=== PATIENT | male | born 1980 | race Caucasian/White ===

== ENCOUNTER 2020-04-26 19:15 | Emergency (ER) | payer MEDICAID ==
[~2020-04-26] VITALS: Ht 172.7 cm; Wt 99.8 kg
[2020-04-26 19:22] VITALS: BP 157/108
--- NOTE | 2020-04-26 19:23 | NUR ---
PT TAKEN TO BED 7
--- NOTE | 2020-04-26 19:25 | NUR ---
39 Y/O MALE PRESENTED TO ED C/O ABSCESS BELOW LEFT ELBOW. PT STATES HE HAD IT LOOKED AT LAST WEEK AND WANTED TO GET IT RECHECKED. PT SECONDARY C/O URINARY RETENTION AND BURNING ISSUES. PT STATES HE HAD UNPROTECTED SEX AND NOW WANTS TO GET TESTED FOR STD. PT RESTING IN BED AT LOWEST POSITION , HOB ELEVATED , SIDE RAIL X1. PMH: ASTHMA RX: DENIES NKA
--- NOTE | 2020-04-26 19:30 | NUR ---
PT AMBULATED TO RESTROOM W/ STEADY GAIT.
[2020-04-26] MEDS ORDERED: AZITHROMYCIN 250 MG TAB PO ONE (19:55)
[2020-04-26] MEDS ORDERED: cefTRIAXone 1,000 MG in LIDOCAINE MPF 1% 2.1 ML IM ONE (19:55)
[2020-04-26] MEDS ORDERED: cefTRIAXone 1,000 MG VIAL ONE (20:03)
--- NOTE | 2020-04-26 20:03 | NUR ---
CALLED HOUSE SUP FOR AZITHROMYCIN MEDICATION FOR PT.
[2020-04-26] MEDS ORDERED: LIDOCAINE MPF 1% 5 ML ONE (20:04)
[2020-04-26 20:32] VITALS: BP 157/108
--- NOTE | 2020-04-26 20:34 | NUR ---
Patient discharged with v/s stable. Written and verbal after care instructions given and explained. Patient verbalized understanding. Ambulatory with steady gait. All questions addressed prior to discharge. Advised to follow up with PMD.
[2020-04-28 06:08] LABS: CHLAMYDIA TRACHOMATIS AMP DNA Negative (Negative)
== END 2020-04-26 20:34 | disposition home or self-care (01) ==
LOC: MED 19:15
DX: A64 Unspecified sexually transmitted disease (principal); F17.210 Nicotine dependence, cigarettes, uncomplicated; R03.0 Elevated blood-pressure reading, without diagnosis of hypertension; Z48.00 Encounter for change or removal of nonsurgical wound dressing
CPT/HCPCS: 96372; 99283; J0696; J2001; 36415; 87491